=== PATIENT | male | born 1995 | race Caucasian/White ===

== ENCOUNTER 2019-12-27 03:04 | Emergency (ER) | payer MEDICAID ==
[~2019-12-27] VITALS: Ht 182.9 cm; Wt 70.0 kg
[2019-12-27] MEDS ORDERED: normal saline 1000ML IV soln IVB ONE (03:10)
[2019-12-27] MEDS ORDERED: ondansetron/PF 4mg/2ml inj IV ONE (03:10)
--- NOTE | 2019-12-27 03:11 | NUR ---
patients contact # for ride after discharge Tito Coles # [phone]
--- NOTE | 2019-12-27 03:27 | NUR ---
pt sitting at high fowlers position. pt sleeping. he has an emesis bag near him. pt given IV zofran and he currently has a liter of NS infusing.
[2019-12-27 03:38] LABS: BASOPHILS # (AUTO) 0.1 X10'3 (0-0.2); BASOPHILS % (AUTO) 0.7 % (0-1); EOSINOPHILS % (AUTO) 0.4 % (0-6); HEMATOCRIT 46.3 % (42.0-52.0); HEMOGLOBIN 15.1 g/dl (14.0-17.9); LYMPHOCYTES # (AUTO) 1.9 X10'3 (1.1-4.8); MEAN CORPUSCULAR HEMOGLOBIN 27.6 PG (27.0-31.0); MEAN CORPUSCULAR HGB CONC 32.6 g/dL (33.0-36.5); MEAN CORPUSCULAR VOLUME 84.6 FL (78-98); MEAN PLATELET VOLUME 7.1 FL (7.4-10.4); MONOCYTES # (AUTO) 0.4 X10'3 (0-0.9); MONOCYTES % (AUTO) 5.1 % (2-12); NEUTROPHILS # (AUTO) 6.3 X10'3 (1.8-7.7); NEUTROPHILS % (AUTO) 71.8 % (42-75); PLATELET COUNT 278 X10'3 (140-440); RED BLOOD COUNT 5.47 X10'6 (4.70-6.10); RED CELL DISTRIBUTION WIDTH 13.5 % (11.5-14.5); WHITE BLOOD COUNT 8.7 X10'3 (4.5-11.0)
[2019-12-27 03:47] LABS: ALANINE AMINOTRANSFERASE 27 U/L (12-78); ALBUMIN 4.6 G/DL (3.4-5.0); ALBUMIN/GLOBULIN RATIO 1.4 (1.1-1.5); ALKALINE PHOSPHATASE 90 IU/L (46-116); ANION GAP 9 (8-16); ASPARTATE AMINO TRANSFERASE 34 U/L (10-37); BILIRUBIN,TOTAL 0.4 MG/DL (0.1-1.0); BLOOD UREA NITROGEN 11 MG/DL (7-18); BUN/CREATININE RATIO 9.3 (5.4-32.0); CHLORIDE 104 MMOL/L (99-107); CREATININE 1.18 MG/DL (0.60-1.10); ETHANOL 0.291 GM/DL (0.0-0.010); GLUCOSE 109 MG/DL (70-104); POTASSIUM 3.2 MMOL/L (3.5-5.1); SODIUM 141 MMOL/L (135-145); TOTAL PROTEIN 7.8 G/DL (6.4-8.2); eGFR 77 ML/MIN
[2019-12-27] MEDS ORDERED: POTASSIUM BICARB 20meq eff tab 20 MEQ TABLET.EFF PO ONE (05:25)
[2019-12-27 05:39] VITALS: BP 114/53
--- NOTE | 2019-12-27 05:52 | NUR ---
PT ABLE TO AMBULATE AND DRINK WATER. PT WENT TO THE BATHROOM TO VOID. HIS FRIEND CHLOÉ NOTIFIED TO PICK PT UP. HE IS READY FOR DC PER DR. CARNEY ORDERS. PT IS NOW AOX3.
== END 2019-12-27 06:04 | disposition home or self-care (01) ==
LOC: ER 03:05
DX: F10.129 Alcohol abuse with intoxication, unspecified (principal); E87.6 Hypokalemia; E86.0 Dehydration; Y90.0 Blood alcohol level of less than 20 mg/100 ml
CPT/HCPCS: 36415; 80053; 80320; 85025; 96374; 99285; J2405; J7030